=== PATIENT | female | born 1945 | race Caucasian/White ===

== ENCOUNTER → 2017-09-29 | Outpatient (CLI) | payer BC | LOC: M.RAD 12:13 | DX: J06.9 Acute upper respiratory infection, unspecified (principal) ==

== ENCOUNTER → 2017-11-08 | Outpatient (CLI) | payer BC | LOC: M.RAD 11:00 | DX: J18.9 Pneumonia, unspecified organism (principal) ==

== ENCOUNTER 2019-02-07 11:25 | Inpatient (IN) | payer BC ==
[~2019-02-07] VITALS: Ht 172.7 cm; Wt 65.8 kg
[2019-02-07 10:46] LABS: HEMATOCRIT 37.7 % (37.0-47.0); HEMOGLOBIN 12.4 gm/dL (12.0-15.0); MCH 27.3 pg (26.0-34.0); MCV 82.7 fL (80.0-100.0); MPV 7.2 fl. (7.2-11.1); RBC 4.56 mil/uL (4.20-5.00); RDW-CV 14.8 % (10.5-14.5); WBC 7.5 thou/uL (4.0-11.0)
[2019-02-07 11:03] LABS: CALCIUM 9.1 mg/dL (8.5-10.1); CREATININE 0.9 mg/dL (0.6-1.3); POTASSIUM 4.3 mmol/L (3.5-5.1)
[2019-02-07 11:29] VITALS: BP 134/98
[2019-02-07] MEDS ORDERED: ZANTAC 150MG T150 MG PO (11:39)
[2019-02-07] MEDS ORDERED: LISINOPRIL20 MG PO (11:39)
[2019-02-07] MEDS ORDERED: CALCIUM 600 +1 EAC1 PO (11:39)
[2019-02-07] MEDS ORDERED: SUPER B-50 COM1 EAC1 PO (11:40)
[2019-02-07] MEDS ORDERED: VITAMIN D1000 UNI2 PO (11:40)
[2019-02-07] MEDS ORDERED: CLONAZEPAM 0.50.5 M1 PO (11:41)
[2019-02-07] MEDS ORDERED: CLARITIN10 MG PO (11:41)
--- NOTE | 2019-02-07 12:10 | NUR ---
THIS NURSE INSERTED IV 20G IN RIGHT AC. LISA PINA CALLED AND NOTIFIED THAT IV WAS STARTED AND PT READY FOR CT ANGIO. PT ASKED FOR ICE WATER. DR. HERNANDEZ STATED PT COULD HAVE ICE WATER. ICE WATER GIVEN TO PT. PT ALSO GIVEN WARM BLANKET.
[2019-02-07 12:29] LABS: INR ND; PROTIME ND Seconds (9.20-11.50)
[2019-02-07 12:52] LABS: PROTIME 10.7 Seconds (9.20-11.50)
--- NOTE | 2019-02-07 13:41 | NUR ---
CALLED TO PHARMACY FOR MEDICATION, STATES WILL SIT IT IN WINDOW
[2019-02-07 14:02] VITALS: BP 129/64
--- NOTE | 2019-02-07 14:53 | EKG ---
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1945 Requested By: Andrews Loja Order Number: [id number] MD: Mor Reeder Measurements Intervals [place] Rate: 87 P: 33 ID: 180 QRS: -25 QRSD: 93 T: 6 QT: 360 QTc: 433 Interpretive Statements Sinus rhythm Probable left atrial enlargement Left ventricular hypertrophy Possible anterior infarct, age indeterminate No previous ECG available for comparison Electronically Signed On 02-07-2019 14:53:02 CDT by Mor Reeder [email or web address] <ELECTRONICALLY SIGNED> By: Mor Reeder MD, LOCATED WITHIN [facility] 02/07/19 1453 1320 1320 Mor Reeder MD, FAC /EPI
--- NOTE | 2019-02-07 16:06 | 2DMMODE ---
[place] [address] 2 D/M-MODE ECHOCARDIOGRAM Name: PRICILLA VEE Room: [address] IN [facility]#: [id number] Admission: 02/07/19 Attend Phys: Naseem Johnson, Discharge: Date of : 45 Date of Service: 02/07/19 1606 Report #: [id number] THIS REPORT FOR: //name// APPROVED REPORT Study performed: 02/07/2019 15:09:44 EXAM: Comprehensive 2D, Doppler, and color-flow Echocardiogram Patient Location: In-Patient Room #: 229 Status: routine BSA: 1.78 HR: 91 bpm BP: 129/64 mmHg Rhythm: NSR Other Information Study Quality: Good Indications Pulmonary Embolism 2D Dimensions IVSd: 11.55 (7-11mm) LVOT Diam: 20.78 (18-24mm) LVDd: 40.67 mm PWd: 9.81 (7-11mm) Ascending Ao: 31.88 (22-36mm) LVDs: 22.73 (25-40mm) Aortic Root: 30.21 mm Volumes Left Atrial Volume (Systole) LA ESV Index: 17.80 mL/m2 Aortic Valve AoV Peak Morteza.: 1.52 m/s AO Peak Gr.: 9.19 mmHg LVOT Max P.89 mmHg AO Mean Gr.: 4.61 mmHg LVOT Mean P.18 mmHg LVOT Max V: 1.11 m/s AO V2 VTI: 24.57 cm LVOT Mean V: 0.67 m/s IRIS (VTI): 2.92 cm2 LVOT V1 VTI: 21.19 cm Mitral Valve E/A Ratio: 0.66 MV Decel. Time: 184.61 ms MV E Max Morteza.: 0.79 m/[place] [address] 2 D/M-MODE ECHOCARDIOGRAM Name: PRICILLA VEE Room: [address] IN .R.#: [id number] Admission: 02/07/19 Attend Phys: Naseem Johnson, Discharge: Date of : 45 Date of Service: 02/07/19 1606 Report #: [id number] MV PHT: 53.54 ms MVA (PHT): 4.11 cm2 TDI E/Lateral E': 6.58 E/Medial E': 7.18 Medial E' Morteza.: 0.11 m/s Lateral E' Morteza.: 0.12 m/s Pulmonary Valve PV Peak Morteza.: 1.17 m/s PV Peak Gr.: 5.51 mmHg Left Ventricle The left ventricle is normal size. There is normal LV segmental wall motion. There is normal left ventricular wall thickness. Left ventricular systolic function is normal. The left ventricular ejection fraction is within the normal range. LVEF is 65%. Grade I - abnormal relaxation pattern. Right Ventricle The right ventricle is normal size. The right ventricular systolic function is normal. Atria The left atrium size is normal. The right atrium size is normal. Aortic Valve Mild aortic valve sclerosis. No aortic regurgitation is present. There is no aortic valvular stenosis. Mitral Valve The mitral valve is normal in structure. There is no mitral valve regurgitation noted. No evidence of mitral valve stenosis. Tricuspid Valve The tricuspid valve is normal in structure. Unable to assess PA pressure. Trace tricuspid regurgitation. Pulmonic Valve The pulmonary valve is normal in structure. Trace pulmonic regurgitation. Great Vessels The aortic root is normal in size. IVC is normal in size and collapses >50% [place] [address] 2 D/M-MODE ECHOCARDIOGRAM Name: PRICILLA VEE Ramon Room: [address] IN [facility]#: [id number] Admission: 02/07/19 Attend Phys: Naseem Johnson, Discharge: Date of : 45 Date of Service: 02/07/19 1606 Report #: [id number] Pericardium There is no pericardial effusion. <Conclusion> The left ventricle is normal size. There is normal left ventricular wall thickness. Left ventricular systolic function is normal. The left ventricular ejection fraction is within the normal range. LVEF is 65%. Grade I - abnormal relaxation pattern. The right ventricle is normal size. The left atrium size is normal. Mild aortic valve sclerosis. No aortic regurgitation is present. There is no aortic valvular stenosis. The mitral valve is normal in structure. The tricuspid valve is normal in structure. IVC is normal in size and collapses >50% with inspiration. There is no pericardial effusion. There is normal LV segmental wall motion. <ELECTRONICALLY SIGNED> By: Mor Reeder MD, FACC 02/07/19 1606 1606 1606 Mor Reeder MD, FACC /INF
[2019-02-07 20:00] VITALS: BP 112/46
[2019-02-08 00:40] VITALS: BP 98/46
[2019-02-08 02:06] LABS: GLYCOHEMOGLOBIN (HGB A1C) 6.4 % (4.8-5.6)
[2019-02-08 04:00] VITALS: BP 115/54
[2019-02-08 05:14] LABS: HEMOGLOBIN 11.1 gm/dL (12.0-15.0)
--- NOTE | 2019-02-08 06:53 | NUR ---
ASSUMED PATIENT CARE AT 1900. PATIETN ALERT AND ORIENTED TIMES FOUR. ALL QUESTIONS ANSWERED FOR PATIENT AND SPOUSE. END TRIMMER AND HOURLY ROUNDING COMPLETELY DOCUMENTED.
[2019-02-08 08:00] VITALS: BP 118/72
--- NOTE | 2019-02-08 09:19 | NUR ---
ASSUMED CARE OF PT AT 0730. PT RESTING IN BED. AT BEDSIDE. PT A&0X4, COMPLAINS OF GENERALIZED PAIN TO BODY AND HEAD. TREATED WITH PRN TYLENOL WITH PARTIAL RELIEF. PT TRACING SR ON THE PHARMACY INTERN. ON RA SAT UPPER 90'S. DENIES ANY SHORTNESS OF BREATH. PT UP AD TITO IN ROOM. PT GOAL FOR TODAY IS VASCULAR CONSULT IN PLACE, MONITOR ORTHSTATS, PAIN MGMT, AND DISCHARGE PLANNING TO HOME. AM ASSESSMENT CHARTED. MEDICATIONS PER SEP. PT REPOSITIONS SELF. HOURLY ROUNDING OBSERVED. BED IN LOW POSITION. CALL LIGHT WITHIN REACH. WILL CONTINUE PLAN OF CARE.
[2019-02-08] MEDS ORDERED: XARELTO15 MG PO (11:16)
[2019-02-08 12:11] VITALS: BP 118/72
--- NOTE | 2019-02-08 14:09 | NUR ---
SW met with pt and pt to complete initial assessment and discuss dc planning. Pt lives at home with and they did not express any dc needs. SW discussed Xarelto and pt uses [facility]; SW provided 30 day free trial.
--- NOTE | 2019-02-08 15:18 | NUR ---
VASCULAR HERE TO SEE PT. ORDERS RECEIVED FOR US CAROTIDS. RESULTS BACK-NEGATIVE. ORTHOSTATS NEGATIVE. BILATERAL THIGH HIGH JULIANA HOSE APPLIED. DISCHARGE ORDERS RECEIVED. DISCHARGE INSTRUCTIONS, CARE NOTES, SCRIPTS AND FOLLOW UP APPTS GIVEN TO PT. PT COMMUNICATES UNDERSTANDING OF DISCHARGE TEACHING. 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 PT DISCHARGED WITH ALL BELONGINGS AND PAPERWORK VIA WHEECHAIR WITH [employer] TO SPOUSE OWN PERSONAL VEHICLE.
== END 2019-02-08 15:18 | disposition home or self-care (01) | DRG 175 ==
LOC: M.TBA-ER 13:13 → M.2W 13:13
PROVIDERS: Emergency Medicine; Registered Nurse Diabetes Educator; ADMIT Internal Medicine
DX: I26.99 Other pulmonary embolism without acute cor pulmonale (principal); J18.9 Pneumonia, unspecified organism; I82.412 Acute embolism and thrombosis of left femoral vein; I82.422 Acute embolism and thrombosis of left iliac vein; I10 Essential (primary) hypertension; I87.8 Other specified disorders of veins; Z79.899 Other long term (current) drug therapy